=== PATIENT | male | born 1990 | race Two or more races ===

== ENCOUNTER 2018-11-10 19:49 | Emergency (ER) | payer SELFPAY ==
[2018-11-10 20:03] VITALS: BP 122/86; PULSE 90; TEMP 98.7; BMI 25.0
--- NOTE | 2018-11-10 21:02 | PDOC ---
History of Present Illness - General Chief Complaint: Ear Problem Stated Complaint: R/EAR DISCOMFORT Time Seen by Provider: 11/10/18 20:55 - History of Present Illness Initial Comments: 11/10/18 20:59 28-year-old male without comorbidities presents for evaluation of right earache 4 days after swimming in a pool. Past History - Past Medical History Allergies/Adverse Reactions: Allergies Allergy/AdvReac Type Severity Reaction Status Date / Time No Known Allergies Allergy Verified 11/10/18 20:02 Home Medications: Ambulatory Orders Ciprofloxacin HCl/Dexameth [Ciprodex Otic Suspension] 4 drop AD BID 5 Days #1 bottle 11/10/18 COPD: No - Suicide/Smoking/Psychosocial Hx Smoking History: Never smoked Review of Systems - Review of Systems Constitutional: Yes: Fever HEENTM: Yes: Ear Pain *Physical Exam - Vital Signs Last Vital Signs Temp Pulse Resp BP Pulse Ox 98.7 F 90 18 122/86 99 11/10/18 20:00 11/10/18 20:00 11/10/18 20:00 11/10/18 20:00 11/10/18 20:00 - Physical Exam Comments: 11/10/18 21:00 HEAD: NC/AT EYES: Conjuntiva clear Ears: Left ear canal and tympanic membrane are normal. Right ear canal is erythemic with exudate tympanic membrane is poorly visualized but visualized portion is normal. NOSE: No d/c THROAT: Moist mucous membrances, oral pharanx clear, uvula midline NECK: Supple without adenopathy MS: Full ROM in all joints without edema NEUROLOGIC: No gross sensory or motor deficits, NVID SKIN: Normal color and temperature no lesions or rashes Medical Decision Making - Medical Decision Making 11/10/18 21:00 See use of Tylenol and Motrin for pain Ciprodex for otitis externa *DC/Admit/Observation/Transfer Diagnosis at time of Disposition: Otitis externa - Discharge Dispostion Disposition: HOME Condition at time of disposition: Stable Decision to Admit order: No - Prescriptions Prescriptions: Ciprofloxacin HCl/Dexameth [Ciprodex Otic Suspension] 4 drop AD BID 5 Days #1 bottle - Referrals Referrals: Ferhco Diego MD [Staff Physician] - - Patient Instructions Printed Discharge Instructions: Otitis Externa, DI for Otitis Externa Additional Instructions: Use the antibiotics as directed. Finish the entire 5 day course. Tylenol and Motrin as directed for pain. Return to the emergency room for worsening symptoms. In 1-2 days follow-up with ear nose and throat doctor without fail. - Post Discharge Activity
== END 2018-11-10 21:27 | disposition home or self-care (01) ==
LOC: JERFT 19:49
DX: H60.91 Unspecified otitis externa, right ear (principal)
CPT/HCPCS: 99281-25